=== PATIENT | male | born 1945 | race Caucasian/White ===

== ENCOUNTER → 2016-12-16 | Outpatient (CLI) | payer OTHER, MEDICARE ==
[~2016-12-16] MED LIST: [UNRECOGNIZED DRUG - OTHER]
--- NOTE | 2016-12-16 09:50 | DIAGNOSTIC IMAGING REPORT ---
LEFT KNEE 2 VIEWS CLINICAL HISTORY: Chronic left knee pain. FINDINGS: AP and lateral views of the left knee are compared to study dated 12/21/14. The skeletal structures are osteopenic. No fracture is seen. There is moderate tricompartmental degenerative joint space narrowing, greatest in the medial and patellofemoral compartments. There are small medial marginal osteophytes, patellar enthesophytes, and degenerative beaking of the tibial spine. A calcified fabella is noted. Bony overgrowth is noted from the posterior aspect of the femur. There is no joint effusion. Mild prepatellar soft tissue swelling is observed. Atherosclerotic calcification is present in the popliteal artery. IMPRESSION: 1. Mild prepatellar soft tissue swelling with no acute bony abnormality identified. 2. Osteopenia and arthritic change as above. This has minimally progressed from the 2015 examination. Electronically signed by: Thony Durbin M.D. 12/16/2016 9:49 AM Dictated Date/Time: 12/16/2016 9:47 AM
[2016-12-16 10:05] LABS: ALT/SGPT 19 U/L (12-78); AST/SGOT 8 U/L (15-37); BLOOD UREA NITROGEN 21 mg/dl (7-18); BUN/CREATININE RATIO 23.9 (10-20); CARBON DIOXIDE 30 mmol/L (21-32); CHLORIDE 105 mmol/L (98-107); CREATININE 0.88 mg/dl (0.60-1.40); GLUCOSE 94 mg/dl (70-99); POTASSIUM 4.3 mmol/L (3.5-5.1); SODIUM 141 mmol/L (136-145)
[2016-12-16 10:08] LABS: ALB/GLOB RATIO 1.1 (0.9-2); ALKALINE PHOSPHATASE 66 U/L (45-117); CHOLESTEROL 186 mg/dl (0-200); CHOLESTEROL/HDL RATIO 3.4; HDL CHOLESTEROL 54 mg/dl; LDL CHOLESTEROL CALCULATED 117 mg/dl; TRIGLYCERIDES 74 mg/dl (0-150); VERY LOW DENSITY LIPOPROT CALC 15 mg/dl
== END | disposition home or self-care (01) ==
LOC: C.RAD 09:07
PROVIDERS: ATTEND Family Medicine
DX: M17.9 Osteoarthritis of knee, unspecified (principal); I10 Essential (primary) hypertension; E78.5 Hyperlipidemia, unspecified

== ENCOUNTER → 2017-12-14 | Outpatient (CLI) | payer OTHER ==
--- NOTE | 2017-12-14 08:58 | DIAGNOSTIC IMAGING REPORT ---
L KNEE 1 OR 2 VIEWS ROUTINE CLINICAL HISTORY: PRIMARY OSTEOARTHRITIS COMPARISON: Left knee radiographs December 16, 2016. FINDINGS: Alignment of left knee is anatomic. There is no fracture or suspicious lesion. There is no evidence for joint effusion. There is mild medial patellofemoral joint space narrowing with moderate tricompartmental osteophytosis. A few possible joint bodies measure up to 1.4 cm. IMPRESSION: 1. No acute fracture or joint effusion of the left knee. 2. Moderate osteoarthritis of the left knee, most pronounced within the medial and patellofemoral compartments. 3. A few suspected joint bodies. Electronically signed by: Devyn Brambila M.D. 12/14/2017 8:57 AM Dictated Date/Time: 12/14/2017 8:55 AM
== END | disposition home or self-care (01) ==
LOC: C.RAD1850 08:43
PROVIDERS: ATTEND Family Medicine
DX: M17.12 Unilateral primary osteoarthritis, left knee (principal)

== ENCOUNTER 2022-03-16 05:00 | Observation (INO) ==
--- NOTE | 2022-03-05 08:01 | History & Physical Report ---
Date of Service March 05, 2022 date of surgery: 03/16/22 Procedure: Left Total Knee Arthroplasty Surgeon: Saroj Duong Assessment & Plan (1) Arthritis of knee, left: Plan: Further care discussed with patient and at this point in time has failed conservative measures and would like to proceed with a left total knee replacement. he will need cardiac clearance from Dr Carvalho and medical clearance from Dr Roberts. Plan on discharge will be home with home health physical therapy. DVT prophylaxis with TEDs, SCDs and will resume Eliquis post op. Patient will have follow up appointment in our office two weeks post op for re-evaluation. Patient otherwise has no other questions or concerns. The risks and benefits have been discussed including, but not limited to, risk of infection, nerve injury, stiffness, loss of motion, failure to improve, etc. Reasonable outcomes and options of treatment were discussed. An explanation of appropriate alternatives to the procedure that may be advantageous were discussed and their risks and benefits, as well as the risks and benefits of not proceeding with treatment. I offered to answer any additional inquiries concerning the treatment involved. All the patient's questions were answered. The patient is agreeable, understanding of the treatment plan and alternatives, and wishes to proceed with the treatment plan. History of Present Illness Chief Complaint: left knee pain Primary Care Provider: Teddy Roberts MD Zac is a 76 year old male who complains of left knee pain, presents for pre-op evaluation prior to a left total knee replacement by Dr Duong at [facility]. He has complaints of pain, decreased range of motion, instability and stiffness in his left knee. Currently the patient states that the symptoms are moderate- severe and is described as aching, sharp and throbbing. His symptoms are aggravated by ascending stairs, daily activities, first steps while awake walking. He is unable to take NSAIDs due to being on Eliquis. He has been treated with previous visco injections in the past without much relief. Allergies Allergy/AdvReac Type Severity Reaction Status Date / Time No Known Allergies Allergy Mild Verified 03/02/22 10:58 Home Medications Medication Instructions Recorded Confirmed Type acetaminophen 500 mg tablet 500 mg PO QAM 07/27/21 03/02/22 History apixaban 5 mg tablet (Eliquis) 5 mg PO BID 07/27/21 02/25/22 History lisinopril 40 mg tablet 40 mg PO QAM 07/27/21 03/02/22 History metoprolol succinate 25 mg 25 mg PO HS 07/27/21 03/02/22 History tablet,extended release 24 hr (Toprol XL) simvastatin 40 mg tablet 40 mg PO HS 07/27/21 03/02/22 History Past Med/Surg History Medical History Arthritis Atrial fibrillation Follows with Dr. 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 Required: No Beliefs That Will Affect Care: Temple Temple Beliefs: ANIYA Current Living Situation: Spouse current occupational status: retired Feels Safe at Home: Yes Assistive Devices: Cane and Glasses Review of Systems Review of Systems: All systems reviewed & are unremarkable except as noted in HPI & below Constitutional: no fever, no chills and no sweats Respiratory: no cough and no dyspnea Cardiovascular: no chest pain, no dyspnea and no orthopnea Gastrointestinal: no abdominal pain, no nausea and no vomiting Musculoskeletal: as per Subjective / HPI Physical Exam Physical Exam: HT: 6ft 2in WT: 92.3kg Constitutional: WD/WN, vitals as above no acute distress Respiratory: normal respiratory effort, lungs clear to auscultation no respiratory distress, no labored breathing and does not use accessory muscles Cardiovascular: Rate/Rhythm: + irregularly irregular Gastrointestinal (Abdomen): normal bowel sounds, soft, nontender, no hepatosplenomegaly Musculoskeletal: Knee: + knee abnormal to inspection (LEFT KNEE: ), + effusion (+1 effusion), + limited ROM of knee (ROM 0/3/110), + knee ROM with crepitation, + joint line tenderness (medial joint line) and + Eleno's sign positive; no deformity, no skin erythema, no ecchymosis, no valgus laxity, no varus laxity, anterior drawer test negative, Delores's sign negative and pivot shift test negative Results & Data Results & Data ([facility]) Diagnostic Findings Left Knee X-ray: left knee series confirm advanced degenerative changes to the left knee, greatest medial compartments and patellofemoral joint, showing joint space narrowing, osteophyte formation and subchondral sclerosis. no acute bony pathology noted.
--- NOTE | 2022-03-12 08:39 | Anesthesiology Consultation ---
Date of Service March 12, 2022 Assessment & Plan (1) Encounter for pre-operative examination: Chart Review Chart Review: Acceptable Risk for Surgery (pending preop Covid testing results ) and Patient NOT seen in Pre Admission Testing Pt initially scheduled 03/02/22- preop UA showed WBC counts- pt's procedure was postponed and pt was treated with an antibiotic. Per nursing assessment 02/25/22, pt resides in [facility]. Wears mask in public. No known Covid positive exposures or Covid related symptoms. No known Covid infection in the past 90 days. Patient is fully vaccinated for Covid. Preop Covid testing scheduled 03/12/22= will await results Patient seen by PCP 03/09/22 = seen for preop evaluation. Pt's initial surgery was rejected due to patient having UTI- treated and had recent urinary followup. Based upon here interview and examination, he is cleared for surgery. UTI symptomsculture results from [place] are negative Patient seen by cardiology 02/09/2022 = seen for preoperative evaluation. Patient is finally scheduled for knee surgery in February 2022. Able to walk up a flight of stairs and walk to the grocery storebut moving slowly due to knee pain and requiring use of cane. Asymptomatic A. fib with controlled ventricular [id number] score of 4. Mild global hypokinesis with EF in the range of 50% with type II diastolic dysfunction per ECHO 2020. HTN. Patient is most limited by his knee pain and is hoping there are no further delays none TKA in February. BP well controlled. Continue Eliquis. EKG showed A. fibrate controlledno change from previous. From a cardiac standpoint and the need for surgery, he is a moderate risk of his greatest risk is that of heart failure. He is not exhibiting any signs or symptoms of fluid overload at this time. He has a history of type II diastolic dysfunction and pulmonary hypertension so anesthesia will need to be judicious with his fluids in the perioperative period. He should stop anticoagulation 3 days prior to surgery and reinitiate QUIANA postoperatively when bleeding risk is acceptable. Follow-up in 6 months. History Surgery Operation Date: 03/16/22 09:35 Proposed Procedures p Left Total Knee Arthroplasty - Saroj Duong DO Height/Weight Height: 6 ft Weight: 90.718 kg Allergies Allergy/AdvReac Type Severity Reaction Status Date / Time No Known Allergies Allergy Mild Verified 03/11/22 15:58 Medications Home Medications Medication Instructions Recorded Confirmed Last Taken acetaminophen 500 mg tablet 500 mg PO QAM 07/27/21 03/11/22 03/02/22 08:00 apixaban 5 mg tablet (Eliquis) 5 mg PO BID 07/27/21 03/11/22 Unknown lisinopril 40 mg tablet 40 mg PO QA 07/27/21 03/11/22 03/01/22 20:30 metoprolol succinate 25 mg 25 mg PO 07/27/21 03/11/22 03/01/22 20:30 tablet,extended release 24 hr (Toprol XL) simvastatin 40 mg tablet 40 mg PO 07/27/21 03/11/22 03/01/22 20:30 Past Medical History Medical History Arthritis Atrial fibrillation Follows with Dr. Carvalho, on Eliquis Biatrial enlargement Per cardio records Heart valve disorder Per cardio records Moderate MR and TR Hyperlipidemia Hypertension Nonischemic cardiomyopathy Per cardio records Mild Pulmonary hypertension Per cardio records Moderate to severe Past Family History Family History Mother Cancer Past Surgical History Surgical History History of colonoscopy History of tooth extraction Social History Smoking Status: Never smoker tobacco type: smokeless tobacco Do You Dip or Chew Tobacco: Yes (1 CAN PER WEEK) Hx Alcohol Use: No Hx Substance Use: No substance use type: does not use Lab Results Anesthesia Preop Results Results Anesthesia Widget: WBC 5.75 K/uL (4.8-10.8) 02/17/22 Hgb 13.9 g/dL (14.0-18.0) L 02/17/22 Hct 43.7 % (42-52) 02/17/22 Plt 206 K/uL (130-400) 02/17/22 Na 140 mmol/L (136-145) 02/17/22 K 4.4 mmol/L (3.5-5.1) 02/17/22 Cl 106 mmol/L (98-107) 02/17/22 CO2 28 mmol/L (21-32) 02/17/22 BUN 25 mg/dl (6-23) H 02/17/22 Creat 1.27 mg/dl (0.6-1.4) 02/17/22 Glucose Level 55 mg/dl (70-99(Fasting)) L 02/17/22 PT 11.7 Seconds (9.0-12.0) 03/02/22 PTT 26.7 Seconds (21.0-31.0) 03/02/22 INR 1.1 (0.9-1.1) 03/02/22 Blood Type A Negative 03/02/22 Antibody Screen NEGATIVE 03/02/22 Testing Laboratory Results 03/08/22= UA: Small leukocyte esterase Electrocardiogram Date: 02/09/22 Findings: + AFIB @ (62bpm ) RBBB. unconfirmed per report (EKG done at cardio appt 02/09/22- per cardio "EKG today showing afib, rate controlled, no change from previous") Chest X-Ray Date: 07/31/21 No large infiltrates or consolidative lesions. Prominent cardiac silhouette. Atherosclerosis. Echocardiogram Date: 08/26/21 EF: 51% Other Findings: + LVH (Mild/concentric) and + diastolic dysfunction (Grade 2) Normal LV size. Global hypokinesis of LV with mildly reduced LV systolic function. Elevated left atrial pressure. Dilated right ventricle with normal systolic function. Severely dilated left and right atrium. Dilated ascending aorta (4.2 cm) and aortic arch (3.8 cm). Dilated inferior vena cava with reduced (<50%) inspiratory collapse. Calcified, tricuspid AV without stenosis. Thickened mitral valve leaflets without stenosis. Moderate MR. Mild VA. Moderate TR. Moderate to severe pulmonary hypertension (PASP is 58 mmHg). Compared to the previous study performed 05/06/2020, there is no significant change.
[2022-03-16] MEDS ORDERED: FAMOTIDINE 20 MG TAB PO SCH (06:00)
[2022-03-16] MEDS ORDERED: METOCLOPRAMIDE HCL 10 MG TABLET PO SCH (06:00)
[2022-03-16] MEDS ORDERED: ACETAMINOPHEN 500 MG TAB PO SCH (06:00)
[2022-03-16] MEDS ORDERED: ROPIVACAINE 0.5% HCL/PF 150 MG, BUPIVACAINE 0.75% MPF 20 ML, EPINEPHrine 30MG/30ML (OR ... INSTIL SCH (06:00)
[2022-03-16] MEDS ORDERED: TRANEXAMIC ACID 1,000 MG **IV Intra-op IV SCH (06:00)
[2022-03-16] MEDS ORDERED: dexAMETHasone 4 MG TAB PO SCH (06:00)
[2022-03-16] MEDS ORDERED: ceFAZolin 2000MG 2,000 MG/15 ML SYR IV SCH (06:00)
[2022-03-16] MEDS ORDERED: CeleBREX 200 MG CAP PO SCH (06:00)
[2022-03-16] MEDS ORDERED: GABAPENTIN 300 MG CAP PO SCH (06:00)
[2022-03-16] MEDS ORDERED: TRANEXAMIC ACID 1,000 MG **IV Pre-op IV SCH (06:00)
[2022-03-16] MEDS ORDERED: LR 500ML BOLUS, THEN 15ML/HR IV SCH (06:00)
[2022-03-16] MEDS ORDERED: BUPIVACAINE 0.5 % 5 MG/1 ML PF 10ML VIAL ONE (06:21)
[2022-03-16] MEDS ORDERED: BUPIVACAINE 0.25% 30 ML VIAL ONE (06:22)
[2022-03-16] MEDS ORDERED: GLYCOPYRROLATE 0.2 MG/ML VIAL ONE (06:50)
[2022-03-16] MEDS ORDERED: LIDOCAINE 2% 2 ML VIAL/AMP(20MG/ML) INFIL ONE (06:50)
[2022-03-16] MEDS ORDERED: fentaNYL citrate 100 MCG/2 ML VIAL ONE ×2 (06:50→07:25)
[2022-03-16] MEDS ORDERED: MIDAZOLAM HCL 1 MG/ML 2ML VIAL ONE (06:50)
[2022-03-16] MEDS ORDERED: DEXAMETHASONE SOD INJ 4 MG/ML VIAL ONE (06:50)
[2022-03-16] MEDS ORDERED: PROPOFOL IV EMULSION 10 MG/ML 20 ML VIAL IV ONE (06:50)
[2022-03-16] MEDS ORDERED: ONDANSETRON INJ 2 MG/ML 2 ML VIAL ONE (06:50)
[2022-03-16] MEDS ORDERED: NEOSTIGMINE METHYLSULFATE 1 MG/ML 10ML VIAL ONE (06:50)
[2022-03-16] MEDS ORDERED: ORTHO JOINT ANESTHETIC ONE (07:01)
--- NOTE | 2022-03-16 07:18 | History & Physical Bridge Note ---
Date of Service March 16, 2022 History & Physical Bridge Note I have examined the patient, reviewed the History & Physical and in the interval since the performance of the History & Physical I have noted the following changes of clinical significance: no changes noted
[2022-03-16] MEDS ORDERED: fentaNYL citrate 100 MCG/2 ML VIAL IV PRN (08:45)
[2022-03-16] MEDS ORDERED: ePHEDrine sulfate 50 MG/ML AMP IV PRN (08:45)
[2022-03-16] MEDS ORDERED: ATROPINE SULFATE 0.1 MG/ML 10ML SYR IV PRN (08:45)
[2022-03-16] MEDS ORDERED: ONDANSETRON INJ 2 MG/ML 2 ML VIAL IV PRN ×2 (08:45→11:37)
--- NOTE | 2022-03-16 08:45 | Procedure Note ---
Procedure Note Date of Service March 16, 2022 Note Radial arterial line placed in Preop in preparation for TKA with Dr. Duong. Right wrist prepped with chlorhexidine and draped with sterile towels. Site infiltrated with 0.5 cc of 1% lidocaine. 20 G angiocath placed under sterile technique utilizing sterile gloves, surgical hats and masks. Catheter threaded using seldinger technique with return of pulsatile, bright red blood. Site covered with occlusive dressing and taped in place. Waveform consistent with correct arterial placement. After placement, fingers of procedural hand had normal perfusion. Patient tolerated procedure well without complications. Elina Springer MD, PhD Anesthesiologist Coding
--- NOTE | 2022-03-16 09:09 | Operative Report ---
Post Operative Report Pre & Post Diagnosis Operation Date: 03/16/22 07:15 Pre-Op Diagnosis: Left Knee Osteoarthritis Post-Op Diagnosis: Left Knee Osteoarthritis I identified the patient and participated in the time-out.: Yes Procedure Operation Date: 03/16/22 07:15 Actual Procedures p Left Total Knee Arthroplasty(Left) utilizing Velia persona Biomet total knee arthroplasty size femur 11 standard tibia for polyeleven medial constrained patella 34 oval Saroj Duong DO Surgeon Saroj Duong DO Welder And Fitter Mich JIMENEZ Estimated Blood Loss 25 Findings Consistent with Post-Op Diagnosis Patient presents with severe end-stage tricompartmental degenerative joint disease varus alignment subchondral sclerosis marginal osteophytes eburnated [id number] with subchondral cystic changes and a moderate to large effusion Specimens Bone and cartilage Drains Medium bore Hemovac Anesthesia Type MAC Spinal Regional Complications none Disposition Accompanied Patient To Recovery: No Disposition: Recovery Room Indications Patient presents after failed attempted conservative management occluding physical therapy anti-inflammatories relative rest activity modification corticosteroid injection viscosupplementation above intraoperative findings are noted. Description of Procedure After proper prepping and draping of the left lower extremity anterior midline incision was made over the region of the extensor extensor mechanism after meticulous hemostasis was obtained and maintained in subcutaneous tissues a medial parapatellar incision was made The patella was subluxed lateralward the medial lateral gutter were cleaned from any hypertrophic synovitis and scar tissue of the distal femoral block was placed and the distal femoral osteotomy cut was made subsequently the chamfers anterior and posterior osteotomy cuts were made utilizing the 4-in-1 block the tibia was subsequently subluxed anteriorward medial and ateral meniscal remnants were excised in their entirety remnants of the anterior and posterior cruciate ligaments were excised in their entirety excellent exposure of the proximal tibia was obtained the tibial osteotomy guide was placed on the proximal tibial osteotomy cut was made once again the knee was irrigated with copious amounts of sterile saline solution the patella was subsequently everted lateralward thickened scar tissue around the patella was removed the patella was subsequently cut utilizing a freehand technique and was drilled prepared for final preparation and placement of patella socially flexion-extension gaps were checked and the equal and symmetric trials were placed to the appropriate femoral and tibial trials with poly-spacer being placed for equal flexion and extension gaps and full range of motion including extension to 0 and flexion to 140 the trial components after having been taken to recovery range of motion was subsequently removed meticulous hemostasis was obtained and maintained subsequently a knee block injection of joint cocktail including ropivacaine 0.5% 150 mg. Bupivacaine 0.5% epinephrine 1-200,030 mL's toradol 30 mg dexamethasone 4 mg ketamine 10 mg clonidine 100 micrograms normal saline solution 30 mg was infiltrated into the soft tissues of the posterior knee medial lateral gutters and periosteal synovium special attention was paid to protect neurovascular structures at all times subsequently trial components having been removed the knee was irrigated with sterile saline solution. debris was removed the proximal tibia was subsequently prepared and was made ready for the placement of the tibial component tibial component was also cemented and tamped into position the femoral component was subsequently placed and cemented in the position the patellar component was subsequently cemented in position because hemostasis once again obtained and maintained wound having been thoroughly irrigated with debridement and debridement lavage was performed as well as a medial parapatellar incision closed with #1 Vicryl in interrupted fashion subcutaneous was closed with #2 Vicryl skin was closed with skin clips. PA-C was necessary for prepping and drapping as well as wound closure of deep fascia Sub cutaneous tissue and skin and was necessary for the case. A sterile compressive dressing was placed patient was taken to recovery in stable condition of report dictated by Ad I attest to the content of the Intraoperative Record and any orders documented therein. Any exceptions are noted below.Due to the complex nature of the procedure, the entire surgery was performed with the operational assistance of Mich HUBER. The maintenance assistant, under direct supervision, was involved in the actual performance of all aspects of the surgical procedure including hemostasis, tissue retraction and incision, instrument management, patient positioning, and wound closure. I attest to the content of the Intraoperative Record and any orders documented therein. Any exceptions are noted below.
--- NOTE | 2022-03-16 10:21 | Anesthesiology Progress Note ---
Date of Service March 16, 2022 Anesthesia Post Procedure Vital Signs Vital Signs: Temp Pulse Resp BP Pulse Ox 03/16/22 09:28 36.4 C L 52 L 18 126/74 97 03/16/22 05:32 36.6 C 64 20 188/94 H 98 Pain Intensity Left Knee: Pain Intensity: 9 Transfer of Care Handoff Completed per policy Notes Mental Status: alert / awake / arousable and participated in evaluation Patient Amnestic to Procedure: Yes Nausea / Vomiting: adequately controlled Pain: adequately controlled Airway Patency, RR, SpO2: stable & adequate BP & HR: stable & adequate Hydration State: stable & adequate Anesthetic Complications: no major complications apparent and Pt Satisfied with anesthetic care
--- NOTE | 2022-03-16 10:41 | XRay Report ---
XR knee LT 1 or 2V routine CLINICAL HISTORY: Postoperative evaluation. COMPARISON: Left knee radiographs December 14, 2017. FINDINGS: Alignment of the total left knee arthroplasty is anatomic. No periprosthetic fracture or u nexpected radiopaque foreign body. Drains are in place. IMPRESSION: Expected findings following total left knee arthroplasty. ACT 112: Negative or not required by law. Electronically signed by: Devyn Brambila M.D. 03/16/2022 10:40 AM
[2022-03-16] MEDS ORDERED: diphenhydrAMINE 50 MG/ML VIAL IV PRN (11:37)
[2022-03-16] MEDS ORDERED: MAGNESIUM HYDROXIDE SUSP 30 ML UDC PO PRN (11:37)
[2022-03-16] MEDS ORDERED: oxyCODONE HCL IR 5 MG TAB (IMMEDIATE RELEASE) PO PRN (11:37)
[2022-03-16] MEDS ORDERED: bisacodyL 10 MG SUPP PR PRN (11:37)
[2022-03-16] MEDS ORDERED: HYDROmorphone INJ 0.5 MG/0.5 ML SYR IV PRN (11:37)
[2022-03-16] MEDS ORDERED: NALOXONE HCL 0.4 MG/1 ML VIAL/CARP IV PRN (11:37)
[2022-03-16] MEDS: SODIUM CHLORIDE 0.9% 1000ML 1,000 ML IV SCH ×2 (11:44→22:00)
[2022-03-16] MEDS: ACETAMINOPHEN 500 MG TAB PO SCH ×2 (13:20→22:00)
[2022-03-16] MEDS: ceFAZolin 2000MG 2,000 MG/15 ML SYR IV SCH (16:17)
[2022-03-16] MEDS: DOCUSATE SODIUM 100 MG CAP PO SCH (20:40)
[2022-03-16] MEDS ORDERED: SENNA 8.6 MG TAB PO SCH (21:00)
[2022-03-16] MEDS ORDERED: METOPROLOL SUCC 25MG EXT REL TAB PO SCH (21:00)
[2022-03-16] MEDS ORDERED: SIMVASTATIN 40 MG TAB PO SCH (21:00)
[2022-03-17] MEDS: ceFAZolin 2000MG 2,000 MG/15 ML SYR IV SCH (00:49)
[2022-03-17] MEDS: ACETAMINOPHEN 500 MG TAB PO SCH ×2 (06:09→14:41)
[2022-03-17 06:17] LABS: Hematocrit (blood only) 37.7 % (42-52); Mean Corpuscular Hemoglobin 28.1 pg (25-34); Mean Corpuscular Hgb Conc 31.8 g/dL (32-36); Mean Corpuscular Volume 88.3 fL (80-100); Mean Platelet Volume 10.7 fL (7.4-10.4); Platelet Count 212 K/uL (130-400); RDW Coefficient of Variation 13.1 % (11.5-14.5); RDW Standard Deviation 42.2 fL (36.4-46.3); Red Blood Count 4.27 M/uL (4.7-6.1); White Blood Count 13.66 K/uL (4.8-10.8)
[2022-03-17 06:38] LABS: BUN Creatinine Ratio 23.4 (10-20); Calcium 8.6 mg/dl (8.5-10.1); Creatinine Clr Calc Pharmacy 52.2 ml/min; Est GFR (African American) 61.7 ml/min; Est GFR (Non-African American) 53.3 ml/min; Potassium 4.4 mmol/L (3.5-5.1)
--- NOTE | 2022-03-17 07:44 | Orthopedic Progress Note ---
Date of Service March 17, 2022 Assessment & Plan (1) Arthritis of knee, left: Plan: Postop day 1 status post left total knee arthroplasty. PT/OT protocols. Weightbearing as tolerated. DVT prophylaxis-Eliquis p.o. twice daily, SCDs, LORRIE looney. Pain management as written. DC planning-patient is planning for home health services upon discharge. Plan for possible discharge home today. Admission and Anticipated Discharge Date Admission Date: March 16, 2022 Subjective Postop day 1 Patient sitting in the chair at the bedside. No complaints this morning. Pain controlled. Denies shortness of breath, chest pain, lightheadedness. Patient states he is hoping to go home today. Physical Exam Physical Exam: Dressings are clean, dry, and intact. Calves are soft and nontender. Neurovascular intact. Toes are mobile. He has good dorsiflexion and plantarflexion of the left knee. Latest Hemovac drainage was 150 mL from the previous shift. Results & Data ([facility]) Vital Signs (Past 12 Hours) Vital Signs Temp Pulse Pulse Resp BP Pulse Ox 03/17/22 07:35 36.4 C L 55 L 14 124/69 98 03/17/22 02:55 36.4 C L 53 L 18 134/71 96 03/16/22 20:43 80 136/73 03/16/22 20:08 151/79 H 03/16/22 20:06 36.4 C L 56 L 18 155/86 H 97 Laboratory Results Laboratory Results WBC 13.66 K/uL (4.8-10.8) H 03/17/22 05:19 RBC 4.27 M/uL (4.7-6.1) L 03/17/22 05:19 Hgb 12.0 g/dL (14.0-18.0) L 03/17/22 05:19 Hct 37.7 % (42-52) L 03/17/22 05:19 MCV 88.3 fL (80-100) 03/17/22 05:19 MCH 28.1 pg (25-34) 03/17/22 05:19 MCHC 31.8 g/dL (32-36) L 03/17/22 05:19 RDW Std Deviation 42.2 fL (36.4-46.3) 03/17/22 05:19 RDW Coeff of Brad 13.1 % (11.5-14.5) 03/17/22 05:19 Plt Count 212 K/uL (130-400) 03/17/22 05:19 MPV 10.7 fL (7.4-10.4) H 03/17/22 05:19 Sodium 136 mmol/L (136-145) 03/17/22 05:19 Potassium 4.4 mmol/L (3.5-5.1) 03/17/22 05:19 Chloride 107 mmol/L (98-107) 03/17/22 05:19 Carbon Dioxide 24 mmol/L (21-32) 03/17/22 05:19 Anion Gap 5 (3-11) 03/17/22 05:19 BUN 30 mg/dl (6-23) H 03/17/22 05:19 Creatinine 1.28 mg/dl (0.6-1.4) 03/17/22 05:19 Est Cr Clr Drug Dosing 52.2 ml/min 03/17/22 05:19 Est GFR ( Amer) 61.7 ml/min 03/17/22 05:19 Est GFR (Non-Af Amer) 53.3 ml/min 03/17/22 05:19 BUN/Creatinine Ratio 23.4 (10-20) H 03/17/22 05:19 Glucose 127 mg/dl (70-99(Fasting)) H 03/17/22 05:19 Calcium 8.6 mg/dl (8.5-10.1) 03/17/22 05:19 SARS-CoV-2, RNA, NAAT NEGATIVE (NEGATIVE) 03/16/22 Unknown Blood Type A Negative 03/16/22 06:06 Antibody Screen NEGATIVE 03/16/22 06:06 Impressions Knee X-Ray 03/16/22 09:54 XR knee LT 1 or 2V routine CLINICAL HISTORY: Postoperative evaluation. COMPARISON: Left knee radiographs December 14, 2017. FINDINGS: Alignment of the total left knee arthroplasty is anatomic. No periprosthetic fracture or unexpected radiopaque foreign body. Drains are in place. IMPRESSION: Expected findings following total left knee arthroplasty. ACT 112: Negative or not required by law. Electronically signed by: Devyn Brambila M.D. 03/16/2022 10:40 AM
[2022-03-17] MEDS: DOCUSATE SODIUM 100 MG CAP PO SCH (08:29)
[2022-03-17] MEDS ORDERED: MULTIVITAMIN TAB PO SCH (09:00)
[2022-03-17] MEDS ORDERED: lisinopril 40 MG TAB PO SCH (09:00)
[2022-03-17] MEDS ORDERED: APIXABAN 5 MG TABLET PO SCH (09:00)
--- NOTE | 2022-03-18 14:28 | Discharge Summary ---
Date of Service March 18, 2022 Admission HPI Per Admitting Provider Zac is a 76 year old male who complains of left knee pain, presents for pre-op evaluation prior to a left total knee replacement by Dr Duong at [facility]. He has complaints of pain, decreased range of motion, instability and stiffness in his left knee. Currently the patient states that the symptoms are moderate- severe and is described as aching, sharp and throbbing. His symptoms are aggravated by ascending stairs, daily activities, first steps while awake walking. He is unable to take NSAIDs due to being on Eliquis. He has been treated with previous visco injections in the past without much relief. Admission Exam Per Admitting Provider Physical Exam: HT: 6ft 2in WT: 92.3kg Constitutional: WD/WN, vitals as above no acute distress Respiratory: normal respiratory effort, lungs clear to auscultation no respiratory distress, no labored breathing and does not use accessory muscles Cardiovascular: Rate/Rhythm: + irregularly irregular Gastrointestinal (Abdomen): normal bowel sounds, soft, nontender, no hepatosplenomegaly Musculoskeletal: Knee: + knee abnormal to inspection (LEFT KNEE: ), + effusion (+1 effusion), + limited ROM of knee (ROM 0/3/110), + knee ROM with crepitation, + joint line tenderness (medial joint line) and + Eleno's sign positive; no deformity, no skin erythema, no ecchymosis, no valgus laxity, no varus laxity, anterior drawer test negative, Delores's sign negative and pivot shift test negative Principal Diagnosis Left Knee Osteoarthritis Discharge Data Allergies Allergy/AdvReac Type Severity Reaction Status Date / Time No Known Allergies Allergy Mild Verified 03/16/22 05:30 Procedures Performed Operation Date: 03/16/22 07:15 Actual Procedures p Left Total Knee Arthroplasty(Left) - Saroj Duong DO Ordered Studies 03/16/22 05:00 US - OR guided needle placemen Routine Hospital Course (1) Arthritis of knee, left: Patient:ZAC LOVE Admit Date:03/16/22 MR#:[id number] Att Phy:Saroj Duong,WilliamOMario Alberto Acct ID:[id number] Michaelle Phy:Teddy Roberts MD Date:1945 Fam Phy: Age:76 Location:3E Sex:M Room/Bed:E306-1 cc: ~ *NOTICE TO RECEIVING CONSTITUTION PARTY/AGENCY This information is strictly Confidential and protected under [place] law. [place] law prohibits you from making any further disclosure of this information unless further disclosure is expressly permitted by the written consent of the person to whom it pertains or is authorized by law. A general authorization for the release of medical or other information is not sufficient for this purpose. Hospital accepts no responsibility if the information is made available to any other person, INCLUDING THE PATIENT. Date of Service March 17, 2022 Assessment & Plan (1) Arthritis of knee, left: Plan: Postop day 1 status post left total knee arthroplasty. PT/OT protocols. Weightbearing as tolerated. DVT prophylaxis-Eliquis p.o. twice daily, SCDs, LORRIE looney. Pain management as written. DC planning-patient is planning for home health services upon discharge. Plan for possible discharge home today. Admission and Anticipated Discharge Date Admission Date: March 16, 2022 Subjective Postop day 1 Patient sitting in the chair at the bedside. No complaints this morning. Pain controlled. Denies shortness of breath, chest pain, lightheadedness. Patient states he is hoping to go home today. Physical Exam Physical Exam: Dressings are clean, dry, and intact. Calves are soft and nontender. Neurovascular intact. Toes are mobile. He has good dorsiflexion and plantarflexion of the left knee. Latest Hemovac drainage was 150 mL from the previous shift. Results & Data ([facility]) Vital Signs (Past 12 Hours) Vital Signs Temp Pulse Pulse Resp BP Pulse Ox 03/17/22 07:35 36.4 C L 55 L 14 124/69 98 03/17/22 02:55 36.4 C L 53 L 18 134/71 96 03/16/22 20:43 80 A 136/73 03/16/22 20:08 151/79 H 03/16/22 20:06 36.4 C L 56 L 18 155/86 H 97 Laboratory Results Laboratory Results WBC 13.66 K/uL (4.8-10.8) H 03/17/22 05:19 RBC 4.27 M/uL (4.7-6.1) L 03/17/22 05:19 Hgb 12.0 g/dL (14.0-18.0) L 03/17/22 05:19 Hct 37.7 % (42-52) L 03/17/22 05:19 MCV 88.3 fL (80-100) 03/17/22 05:19 MCH 28.1 pg (25-34) 03/17/22 05:19 MCHC 31.8 g/dL (32-36) L 03/17/22 05:19 RDW Std Deviation 42.2 fL (36.4-46.3) 03/17/22 05:19 RDW Coeff of Brad 13.1 % (11.5-14.5) 03/17/22 05:19 Plt Count 212 K/uL (130-400) 03/17/22 05:19 MPV 10.7 fL (7.4-10.4) H 03/17/22 05:19 Sodium 136 mmol/L (136-145) 03/17/22 05:19 Potassium 4.4 mmol/L (3.5-5.1) 03/17/22 05:19 Chloride 107 mmol/L (98-107) 03/17/22 05:19 Carbon Dioxide 24 mmol/L (21-32) 03/17/22 05:19 Anion Gap 5 (3-11) 03/17/22 05:19 BUN 30 mg/dl (6-23) H 03/17/22 05:19 Creatinine 1.28 mg/dl (0.6-1.4) 03/17/22 05:19 Est Cr Clr Drug Dosing 52.2 ml/min 03/17/22 05:19 Est GFR ( Amer) 61.7 ml/min 03/17/22 05:19 Est GFR (Non-Af Amer) 53.3 ml/min 03/17/22 05:19 BUN/Creatinine Ratio 23.4 (10-20) H 03/17/22 05:19 Glucose 127 mg/dl (70-99(Fasting)) H 03/17/22 05:19 Calcium 8.6 mg/dl (8.5-10.1) 03/17/22 05:19 SARS-CoV-2, RNA, NAAT NEGATIVE (NEGATIVE) 03/16/22 Unknown Blood Type A Negative 03/16/22 06:06 Antibody Screen NEGATIVE 03/16/22 06:06 Impressions Knee X-Ray 03/16/22 09:54 XR knee LT 1 or 2V routine CLINICAL HISTORY: Postoperative evaluation. COMPARISON: Left knee radiographs December 14, 2017. FINDINGS: Alignment of the total left knee arthroplasty is anatomic. No periprosthetic fracture or unexpected radiopaque foreign body. Drains are in place. IMPRESSION: Expected findings following total left knee arthroplasty. ACT 112: Negative or not required by law. Total Time Total Time Spent Total Time Spent (In Minutes): 5 Discharge Plan Discharge Items Patient Disposition: Home - Home Health Services Reason For Visit: Left Knee Osteoarthritis Discharge Diagnosis: Left Knee Osteoarthritis Activity: Per Instructions section Weightbearing: Left weightbearing Weightbearing Comment: as tolerated with walker Non-emergency contact: Surgeon Call non-emergency contact if: your pain is not controlled, your temperature is above 101.5, your wound has increased redness and your wound has increased drainage Follow-up/Referrals: Teddy Roberts MD [Primary Care Provider] - Saroj Duong DO [Surgeon] - (Follow-up in 14 days from the day of surgery for your first checkup.) Diet: Regular Addtl Attending Provider Instructions: ACTIVITY RECOMMENDATIONS: SELF CARE INSTRUCTIONS AFTER TOTAL KNEE REPLACEMENT A. You may need to continue a physical therapy program after discharge from the hospital. There are several options available to you. Your doctor will assist you in selecting the best one for you. 1. An out-patient facility 2 to 3 times a week for therapy or home therapy. 2. Continue working on all exercises taught to you in the hospital. Your goals should be to increase bending of your knee to 90 degrees and beyond and to fully straighten your knee. B. You may progress at your own pace from walking with a walker or crutches to a cane; then to no assistive devices. C. Make walking a part of your daily routine. Be up as much as comfortable with rest periods throughout the day. Rest with leg elevation is very important. Use the ice wrap frequently for the first 3-4 weeks. D. There are no restrictions on activities. You may ride in a car, shop, participate in computer hardware designer and all social activities. E. Wear the long elastic stockings (LORRIE hose) 20 hours a day for 2 weeks after surgery. They can be removed several times a day for laundering and for a bath. F. You may shower, no tub baths until cleared by your doctor. SPECIAL CARE INSTRUCTIONS: VERY IMPORTANT TO READ AND REVIEW A. There are a few signs you need to watch for after you are home. Call [facility] if you notice any of the followin. Increased severe knee pain. Some pain is expected especially when you exercise. 2. Increased swelling in your leg or knee; pain or swelling of the calf muscle in either lower leg. 3. Any fluid drainage from the incision. 4. Shortness of breath or chest pain. B. Please call [facility] at if you have any concerns or questions about your operation or recovery. The doctor or his nurse will return your call promptly. C. You must take antibiotics before dental work, bladder, bowel or other surgery. Your doctor will provide you with a permanent care to carry describing this precaution. IMPORTANT: * REMEMBER TO TAKE ELIQUIS, 5 MG, TWICE DAILY. THIS IS YOUR BLOOD THINNER. * CALL IF INCREASED PAIN, REDNESS, DRAINAGE OR FEVER GREATER THAT 101. * WEAR LORRIE HOSE 20 HOURS PER DAY FOR 2 WEEKS. * JOSELITO Dressing - This is a large suction dressing covering your incision. This will help pull any excess drainage from the wound and allow your incision to heal properly. You may shower with this if you can keep the unit outside of the shower. If any bleeding or leakage is noted please call your doctor's office. This will remain on your incision for 7 days and then should be removed. This can be done yourself or by the home nursing staff if applicable. The entire unit is disposable once removed. Once removed, keep incision clean and dry. If redness or drainage is noted, please call your surgeon. . Once this dressing is removed. Follow instructions below. * DERMABOND Prineo- This is a mesh tape dressing that is covered with glue. It should remain in place until the incision is properly healed, usually 10-14 days. This dressing is designed to naturally slough off. You may trim the ex cess mesh tape as it peels off. Incision may be briefly wet in a shower. Dry immediately by blotting with a clean, dry towel. Do not bath or swim until instructed by your doctor. Do not scratch, rub, or pick at the dressing. Do not apply any topical ointments or lotions until dressing is completely removed and/or instructed by your doctor. There may be a small piece of suture material at one end of your incision. Do not pull or trim this. If it is bothersome or catching on clothing, you may cover it with a band-aid. FOLLOW UP VISIT: If appointment is not already scheduled: Please call [facility] to make a follow-up appointment for 2 weeks after your surgery at . Pending Studies at Discharge: No Stand-Alone Forms: My [facility], Smoking Cessation Medications and DC Order Prescriptions: New acetaminophen [Tylenol Extra Strength] 500 mg Tablet 1,000 mg PO Q8 14 Days Qty: 84 RF: 0 polyethylene glycol 3350 [Miralax] 17 gram powder in packet 17 g PO DAILY PRN (Reason: constipation) Qty: 5 RF: 0 cefadroxil 500 mg capsule 500 mg PO BID Qty: 28 RF: 1 oxycodone 5 mg Tablet 5 mg PO Q4H MDD 6 PRN (Reason: pain) Qty: 30 RF: 0 Continued simvastatin 40 mg Tablet 40 mg PO HS RF: 0 metoprolol succinate [Toprol XL] 25 mg Tablet Extended Release 24 Hr 25 mg PO HS RF: 0 lisinopril 40 mg Tablet 40 mg PO QAM RF: 0 Eliquis 5 mg Tablet 5 mg PO BID RF: 0 Discontinued acetaminophen [Tylenol Ex Str Arthritis Pain] 500 mg Tablet 500 mg PO QAM RF: 0 Discharge Orders: Discharge Order (Routine); Ordered 03/17/22 Ordered By: Mich Gordon Admission Data Admit Date/Time: 03/16/22 09:54 Attending Provider: Saroj Duong Admit Provider: Saroj Duong Primary Care Provider: Teddy Roberts Other Interventions: Discharge Summary Assessment (RN) Last Done: 03/17/22 11:33
== END 2022-03-17 15:30 | disposition home health service (06) ==
LOC: 3E 05:00 → ASU 05:00